=== PATIENT | male | born 1935 | race Caucasian/White ===

== ENCOUNTER 2018-03-30 15:00 | Inpatient (IN) | payer OTHER ==
[~2018-03-30] VITALS: Ht 177.8 cm; Wt 109.8 kg
--- NOTE | ~2018-03-30 | PROC ---
[address] [address] PROCEDURE REPORT Name: TRUNG GRACE Room: [address] IN M.R.#: [id number] Admission: 03/30/18 Attend Phys: Fifi Lam Discharge: 04/01/18 Date of : 37 Report #: [id number] THIS REPORT FOR: //name// For GI report, please see the Provation report in Perceptive 7 content. By: 0703Medical Records Staff VANE /PAULA
[~2018-03-30 15:00] MED LIST: AMARYL2 MG PO; BACTRIM DS TAB1 EACH PO; BYSTOLIC 5 MG5 M1 PO; CARVEDILOL6.25 MG PO; FENOFIBRATE160 MG PO; FLOMAX0.4 MG PO; KLOR-CON 1010 MEQ PO; LASIX 20 MG TAB20 MG PO; LEVOTHYROXIN0.175 MG PO; LIPITOR10 MG PO; LISINOPRIL10 MG PO
[2018-03-30 15:05] VITALS: BP 114/50
[2018-03-30] MEDS ORDERED: INVOKANA300 MG PO (15:32)
[2018-03-30] MEDS ORDERED: FISH OIL 1,001000 M2 PO (15:33)
[2018-03-30] MEDS ORDERED: ASPIR 8181 MG PO (15:33)
[2018-03-30] MEDS ORDERED: VITAMINC500 PO (15:33)
[2018-03-30] MEDS ORDERED: CENTRUM SILVER1 EAC2 PO (15:34)
[2018-03-30] MEDS ORDERED: COLACE100 MG PO (15:34)
[2018-03-30] MEDS ORDERED: TYLENOL325 MG PO (15:34)
[2018-03-30 15:36] LABS: ABSOLUTE EOSINOPHILS 0.1 thou/uL (0.0-0.7); ABSOLUTE LYMPHOCYTES 1.5 thou/uL (0.8-5.3); ABSOLUTE MONOCYTES 0.7 thou/uL (0.0-1.2); ABSOLUTE NEUTROPHILS 3.9 thou/uL (1.6-8.1); BASOPHILS 0.5 %; EOSINOPHILS 2.2 %; HEMATOCRIT 33.4 % (42.0-52.0); HEMOGLOBIN 11.1 gm/dL (14.0-18.0); LYMPHOCYTES 23.2 %; MCH 29.7 pg (26.0-34.0); MCHC 33.2 g/dL (28.0-37.0); MCV 89.4 fL (80.0-100.0); MONOCYTES 11.8 %; MPV 7.7 fl. (7.2-11.1); NUCLEATED RBCS 0 /100WBC; PLATELET COUNT* 225 thou/uL (150-400); POLYS 62.3 %; RBC 3.74 mil/uL (4.50-6.00); RDW-CV 13.4 % (10.5-14.5); WBC 6.3 thou/uL (4.0-11.0)
[2018-03-30 15:45] LABS: APTT 28.2 Seconds (25.0-31.3); CALCIUM 8.3 mg/dL (8.5-10.1); CREATININE 1.2 mg/dL (0.6-1.3)
[2018-03-30 15:49] LABS: ALBUMIN 2.8 g/dL (3.4-5.0); TOTAL BILIRUBIN 0.2 mg/dL (<0.1-1.0); TOTAL PROTEIN 6.4 g/dL (6.4-8.2)
--- NOTE | 2018-03-30 16:24 | NUR ---
NELL NOTIFIED UPON PT RETURN FROM CT. PT CONNECTED TO BP AND PULSE OX MONITOR WAS PRIOR TO CT
[2018-03-30 17:58] VITALS: BP 105/66
[2018-03-30 18:30] VITALS: BP 119/57
[2018-03-30 20:00] VITALS: BP 122/63
[2018-03-30] MEDS ORDERED: HYDROCODONE-AP1 EAC6 PO (22:28)
[2018-03-30] MEDS ORDERED: FENOFIBRATE160 MG PO (22:28)
[2018-03-30] MEDS ORDERED: AMARYL4 MG PO (22:29)
[2018-03-31] VITALS: BP 97/59
--- NOTE | 2018-03-31 01:34 | NUR ---
ASSUMED CARE OF PT AT 1900. PT IS ALERT AND ORIENTED. VSS. PERRLA. PT IS NPO. NO COMPLAINTS OF PAIN. PT IS IN [facility] ON THE TELEMETRY. PT IS RESTING COMFORTABLY IN BED. RESPIRATIONS ARE EVEN AND NONLABORED. WILL CONTINUE TO MONITOR PT.
[2018-03-31 04:00] VITALS: BP 110/50
[2018-03-31 04:30] LABS: ABSOLUTE EOSINOPHILS 0.2 thou/uL (0.0-0.7); ABSOLUTE LYMPHOCYTES 1.5 thou/uL (0.8-5.3); ABSOLUTE MONOCYTES 0.7 thou/uL (0.0-1.2); ABSOLUTE NEUTROPHILS 2.6 thou/uL (1.6-8.1); BASOPHILS 0.6 %; EOSINOPHILS 3.7 %; HEMATOCRIT 31.7 % (42.0-52.0); HEMOGLOBIN 10.6 gm/dL (14.0-18.0); LYMPHOCYTES 29.7 %; MCH 30.2 pg (26.0-34.0); MCHC 33.6 g/dL (28.0-37.0); MONOCYTES 13.6 %; MPV 7.9 fl. (7.2-11.1); NUCLEATED RBCS 0 /100WBC; PLATELET COUNT* 185 thou/uL (150-400); POLYS 52.4 %; RBC 3.52 mil/uL (4.50-6.00); RDW-CV 13.7 % (10.5-14.5)
[2018-03-31 08:00] VITALS: BP 114/61
[2018-03-31 12:18] LABS: HEMATOCRIT 34.2 % (42.0-52.0); HEMOGLOBIN 11.2 gm/dL (14.0-18.0)
[2018-03-31 12:22] VITALS: BP 130/60
--- NOTE | 2018-03-31 12:49 | NUR ---
CM SPOKE TO THE PATIENT TO DISCUSS HOME SITUATION, DISCHARGE PLANNING, AND TO INFORM OF THE ROLE OF CM. PATIENT ALERT AND ORIENTED. PATIENT INDEPENDENT AND ACTIVE, AND INFORMS THAT HE HAD JUST RECENTLY RETURNED FROM A TOUR OF [place]. PATIENT RESIDES AT HOME WITH HIS SPOUSE. PATIENT OWNS A CANE AND INFORMS THAT HE RARELY USES IT. PATIENT USES A CPAP AT [facility] AND BROUGHT IT WITH HIM TO THE HOSPITAL. PATIENT HAS NO HX OF OR SNF. PATIENT PLANS TO RETURN HOME AT D/C AND DOES NOT ANTICIPATE ANY DISCHARGE PLANNING NEEDS. CM WILL REMAIN AVAILABLE TO ASSIST AND FOLLOW NEEDED.
[2018-03-31 12:55] LABS: % SATURATION 17 % (20-39); IRON 31 ug/dL (50-175)
[2018-03-31 13:31] VITALS: BP 114/61
--- NOTE | 2018-03-31 17:10 | EKG ---
[place] [address] ELECTROCARDIOGRAM REPORT Name: TRUNG GRACE Room: [address] ADM IN .R.#: [id number] Admission: 03/30/18 Attend Phys: Fifi Lam Discharge: Date of : 36 Report #: [id number] THIS REPORT FOR: //name// [facility] Test Date: 2018-03-31 Test Time: 12:35:03 Pat Name: TRUNG GRACE Department: Room: [address] Gender: M Salt Refiner: : 1935 Requested By: Maria Elena Howe Order Number: [id number] Reading MD: Abimael Chand Measurements Intervals [place] Rate: 66 P: 41 AL: 187 QRS: 10 QRSD: 107 T: 39 QT: 429 QTc: 450 Interpretive Statements Sinus rhythm Baseline wander in lead(s) V1,V2 Compared to ECG 05/06/2016 17:43:41 No significant changes Electronically Signed On 03-31-2018 17:10:46 CDT by Abimael Chand [email or web address] <ELECTRONICALLY SIGNED> By: Abimael Chand MD, [facility] 03/31/18 1710 1235 1235 Abimael Chand MD, [facility] /EPI
[2018-03-31 20:00] VITALS: BP 119/54
[2018-03-31 20:20] LABS: HEMATOCRIT 34.2 % (42.0-52.0); HEMOGLOBIN 11.4 gm/dL (14.0-18.0)
[2018-04-01 00:39] VITALS: BP 95/44
--- NOTE | 2018-04-01 00:59 | NUR ---
RECEIVED REPORT AND ASSUMED CARE OF PATIENT AT 1930. MANUFACTURING ENGINEER PAINT IN PLACE TRACING SR. ASSESSMENT AND VITALS COMPLETED CHARTED, VSS. PATIENT ON ROOM AIR WITH SATS >92%. PATIENT DENIES PAIN AND DISCOMFORT. PATIENT AMBULATING INDEPENDENTLY TO BATHROOM. ANTICIPATION OF DISCHARGE HOME TOMORROW. PATIENT VOICES NO CONCERNS. GOAL IS TO REST COMFORTABLY. CALL LIGHT WITHIN REACH
[2018-04-01 04:23] VITALS: BP 111/54
[2018-04-01 04:51] LABS: HEMATOCRIT 30.9 % (42.0-52.0); HEMOGLOBIN 10.4 gm/dL (14.0-18.0); MCH 30.1 pg (26.0-34.0); MCHC 33.7 g/dL (28.0-37.0); MCV 89.2 fL (80.0-100.0); RBC 3.46 mil/uL (4.50-6.00); RDW-CV 13.6 % (10.5-14.5); WBC 4.7 thou/uL (4.0-11.0)
--- NOTE | 2018-04-01 05:05 | NUR ---
PATIENT MET GOALS THIS SHIFT: PATIENT RESTED COMFORTABLY WITH NO C/O PAIN OR DISCOMFORT. CALL LIGHT WITHIN REACH
[2018-04-01 05:09] LABS: CALCIUM 7.9 mg/dL (8.5-10.1); CREATININE 1.1 mg/dL (0.6-1.3); POTASSIUM 4.2 mmol/L (3.5-5.1)
[2018-04-01 08:00] VITALS: BP 105/54
[2018-04-01 10:25] VITALS: BP 105/54
[2018-04-01] MEDS ORDERED: CARAFATE 1 GM TA1 GM PO (10:46)
[2018-04-01] MEDS ORDERED: PROTONIX40 M1 PO (10:48)
--- NOTE | 2018-04-01 12:27 | NUR ---
ASSUMED CARE OF PT AT 0730. PT REMAINED A&O X4 CALM AND COOPERATIVE. PT HAD C/O ANKLE PAIN THAT WERE CONTROLLED WITH PRN PO PAIN MEDICATION. PT VSS ON ROOM AIR AND PT UP AD CAROLINE IN HIS ROOM. DISCHARGE INSTRUCTIONS REVIEWED WITH PT AND . PT AND VERBALIZED UNDERSTANDING OF INSTRUCTIONS THAT INCLUDED MEDICATION TEACHING AND FOLLOW UP CARE. IV AND COMMERCIAL REPRESENTATIVE REMOVED PRIOR TO DISCHARGE. ALL PERSONAL BELONGINGS AND ALL PRESCRIPTIONS TAKEN AT TIME OF DISCHARGE. PT TRANSPORTED VIA W/C BY NURSING STAFF TO PRIVATE VEHICLE.
--- NOTE | 2018-04-03 08:22 | CON ---
[facility] [address] [place] [address] CONSULTATION Name: TRUNG GRACE Room: [address] IN .R.#: [id number] Admission: 03/30/18 Attend Phys: Fifi Lam Discharge: 04/01/18 Date of : 37 Report #: [id number] THIS REPORT FOR: //name// CC: Shar Rice DICTATED BY: Maria Elena Howe [facility] DATE OF SERVICE: 03/31/2018 PRIMARY CARE PHYSICIAN: Shar Bonds M.D. Please note at the time of this dictation, the patient was seen and physically examined by myself. REASON FOR CONSULTATION: Melanotic stools. HISTORY OF PRESENT ILLNESS: This is an 82-year-old male who has been having melanotic or black stools for the last 4 days. He went to see his PCP and his PCP sent him to the Emergency Room for further evaluation of this. He states he has had a very large bowel movement for the last several days that have been very black in nature. He did have another one this morning that he states initially it was black in the end of his stool was starting to turn back to his normal color of brown. The patient denies any NSAID use at this time. He only takes Tylenol as needed. He did have a little bit of some epigastric discomfort as well. The patient did have an EGD and colonoscopy 5+ years ago in [place]. He cannot remember exactly where they were done, but he states that he was told everything was normal. The patient did recently travel abroad to [place] and [place] for 5 weeks and returned approximately 10 days ago. He has no other abdominal discomfort noted at this time. He denies any difficulty with swallowing or any nausea or vomiting. ALLERGIES: DEMEROL. MEDICATIONS: From home include Zestril, Invokana, aspirin, fish oil, vitamin C, Centrum, Colace, Tylenol, potassium chloride, Lasix, fenofibrate, hydrocodone, Amaryl, Synthroid, Lipitor, carvedilol and Amaryl. PAST MEDICAL HISTORY: Hypertension, diabetes, history of prostate cancer and hypothyroidism. PAST SURGICAL HISTORY: Triple bypass surgery and right ankle surgery. FAMILY HISTORY: Negative for any GI [place] [address] CONSULTATION Name: TRUNG GRACE Room: [address]#: [id number] Admission: 03/30/18 Attend Phys: Fifi Lam Discharge: 04/01/18 Date of : 36 Report #: [id number] SOCIAL HISTORY: Lives with his . Denies any alcohol, tobacco or illegal drug use at the present time. REVIEW OF SYSTEMS: Twelve-point review of systems is essentially negative except what is mentioned in the HPI. PHYSICAL EXAMINATION: VITAL SIGNS: Temperature 36.8, pulse 68, respirations 18 and blood pressure 116/65. HEART: Regular rate and rhythm. LUNGS: Clear. ABDOMEN: Soft. Positive bowel sounds in all 4 quadrants, which is very slight epigastric tenderness noted to palpation. LABORATORY DATA: Hemoglobin on admission was 11.1 and is 10.6, hematocrit 31.7, white count is 5 and platelets 185. Sodium 137, potassium 4, chloride 103, CO2 of 26, BUN is 34, creatinine 1.2, GFR is 58 and glucose is 146. RADIOLOGICAL DATA: CT of the abdomen and pelvis shows gastric antrum and some wall hyperenhancement. There is mild hyperenhancement and thickening in the duodenal bulb as well. Diverticulosis of the left colon and some chronic pancreatitis changes. IMPRESSION: 1. Melanotic stool. 2. Anemia. 3. Epigastric pain. 4. CT abnormality at the duodenal bulb thickening noted. PLAN: 1. EGD today with Dr. Olson. 2. Continue with his Protonix. 3. Further recommendations to be made once the procedure has been performed. Thank you for allowing us to participate in this patient's care. Please do not hesitate to call with any questions in regard to this consult. ADDENDUM I have personally seen and examined the patient and reviewed labs and imaging. The patient with 4-day history of melanotic stool and epigastric pain who presented to hospital and found to have anemia. He also had a CT of abdomen and pelvis which showed thickening in the level of the duodenal bulb. We will perform our upper endoscopy to further evaluate the abnormal CT and melanotic stool. The patient reports that he also has had change in bowel [place] [address] CONSULTATION Name: TRUNG GRACE Room: [address] IN ..#: [id number] Admission: 03/30/18 Attend Phys: Fifi Lam Discharge: 04/01/18 Date of : 37 Report #: [id number] more constipated. If we do not find anything in the upper GI, we will consider colonoscopy. I will make further recommendation after the EGD is complete. <ELECTRONICALLY SIGNED> By: Raphael Olson MD 04/03/18 0822 1207 1232Raphael Olson MD /nt
--- NOTE | 2018-07-05 12:05 | PATH ---
[address] [place] [address] PATHOLOGY RPT PROCEDURE Name: TRUNG GRACE Room: [address] IN .R.#: [id number] Admission: 03/30/18 Date of : 37 Discharge: 04/01/18 Report #: [id number] Path Case #: [id number] [facility] Accession Number: [id number] . 01 Material submitted: . DUODENAL ULCER BX . 01 Clinical history: . None provided . 02 Diagnosis: Duodenal ulcer biopsy: - Severe active duodenitis with focal fundic gland metaplasia suggesting peptic ulcer disease, negative for granulomas and dysplasia. (DAWN:db; 04/04/2018) LBQ/04/04/2018 . 02 Electronically signed: . Kaleb Goode MD, Pathologist NPI- [id number] . 01 Gross description: . Received in formalin labeled "Grace, Trung, duodenal ulcer," are 6 segments of matute soft tissue measuring 0.9 x 0.8 x 0.2 cm in aggregate dimensions and ranging from 0.2 and 0.5 cm in maximum dimension. The specimen is submitted entirely in cassette A1. (TSD; 03/31/2018) TOB/TOB . 02 Pathologist provided ICD-10: K29.80 . 02 CPT . 897825 Performed at: [address], [place], [place] [id number] MD Ang Hebert MD Phone: [phone] Performed at: [address] [facility] [address] [address], [place], [place] [id number] MD Kaleb Goode MD Phone: [phone]
== END 2018-04-01 12:24 | disposition home or self-care (01) | DRG 378 ==
LOC: M.ERS 15:00 → M.TBA-ER 17:16 → M.2W 17:16
PROVIDERS: Internal Medicine; Nurse Practitioner Adult Health; Nurse Practitioner Family; ADMIT Internal Medicine
PROC: 0DB98ZX Excision of Duodenum, Via Natural or Artificial Opening Endoscopic, Diagnostic (ICD-10-PCS; principal; 2018-03-31)
DX: K26.0 Acute duodenal ulcer with hemorrhage (principal); D62 Acute posthemorrhagic anemia; E44.1 Mild protein-calorie malnutrition; I10 Essential (primary) hypertension; E11.9 Type 2 diabetes mellitus without complications; E03.9 Hypothyroidism, unspecified; I25.10 Atherosclerotic heart disease of native coronary artery without angina pectoris; K44.9 Diaphragmatic hernia without obstruction or gangrene; Z95.1 Presence of aortocoronary bypass graft; Z85.46 Personal history of malignant neoplasm of prostate; Z87.891 Personal history of nicotine dependence; Z79.82 Long term (current) use of aspirin; Z79.899 Other long term (current) drug therapy; Z88.8 Allergy status to other drugs, medicaments and biological substances

== ENCOUNTER 2018-04-11 13:07 | Emergency (ER) | payer OTHER ==
[~2018-04-11] VITALS: Ht 177.8 cm; Wt 113.2 kg
[~2018-04-11 13:07] MED LIST changes: +AMARYL4 MG PO; +ASPIR 8181 MG PO; +CARAFATE 1 GM TA1 GM PO; +CENTRUM SILVER1 EAC2 PO; +COLACE100 MG PO; +FISH OIL 1,001000 M2 PO; +HYDROCODONE-AP1 EAC6 PO; +INVOKANA300 MG PO; +PROTONIX40 M1 PO; +TYLENOL325 MG PO; +VITAMINC500 PO
[2018-04-11 13:57] LABS: ABSOLUTE EOSINOPHILS 0.2 thou/uL (0.0-0.7); ABSOLUTE LYMPHOCYTES 0.8 thou/uL (0.8-5.3); ABSOLUTE MONOCYTES 0.5 thou/uL (0.0-1.2); ABSOLUTE NEUTROPHILS 3.4 thou/uL (1.6-8.1); HEMATOCRIT 33.8 % (42.0-52.0); HEMOGLOBIN 11.1 gm/dL (14.0-18.0); LYMPHOCYTES 16.4 %; MCH 29.4 pg (26.0-34.0); MCHC 32.8 g/dL (28.0-37.0); MCV 89.7 fL (80.0-100.0); MONOCYTES 10.9 %; NUCLEATED RBCS 0 /100WBC; PLATELET COUNT* 190 thou/uL (150-400); POLYS 67.7 %; RBC 3.77 mil/uL (4.50-6.00); RDW-CV 14.2 % (10.5-14.5)
[2018-04-11 13:59] LABS: CALCIUM 8.3 mg/dL (8.5-10.1); CREATININE 1.3 mg/dL (0.6-1.3); POTASSIUM 3.8 mmol/L (3.5-5.1)
[2018-04-11 14:01] LABS: INR 1.1; PROTIME 10.5 Seconds (9.20-11.50)
[2018-04-11 14:04] LABS: ALBUMIN 2.9 g/dL (3.4-5.0); TOTAL BILIRUBIN 0.3 mg/dL (<0.1-1.0); TOTAL PROTEIN 6.6 g/dL (6.4-8.2)
--- NOTE | 2018-04-11 14:12 | EKG ---
[place] [address] ELECTROCARDIOGRAM REPORT Name: TRUNG GRACE Room: [facility]#: [id number] Admission: 04/11/18 Attend Phys: Discharge: Date of : 36 Report #: [id number] THIS REPORT FOR: //name// [facility] ED Test Date: 2018-04-11 Test Time: 13:31:15 Pat Name: TRUNG GRACE Department: Room: Gender: Hospital Director: Sam ROWAN : 1935 Requested By: Jocelyn Montes Order Number: [id number] MD: Flaco Ramirez Measurements Intervals [place] Rate: 68 P: 36 [place]: 196 QRS: 3 QRSD: 105 T: 41 QT: 423 QTc: 450 Interpretive Statements Sinus rhythm Baseline wander in lead(s) V1 Compared to ECG 03/31/2018 12:35:03 No significant changes Electronically Signed On 04-11-2018 14:11:51 CDT by Flaco Ramirez [email or web address] <ELECTRONICALLY SIGNED> By: Flaco Ramirez MD, [facility] 04/11/18 1411 1331 1331 Flaco Ramirez MD, FACC /EPI
[2018-04-11 15:25] VITALS: BP 125/58
== END 2018-04-11 15:26 | disposition home or self-care (01) ==
LOC: M.ERS 13:07
PROVIDERS: Physician Assistant Surgical
DX: M79.604 Pain in right leg (principal); R60.9 Edema, unspecified; I10 Essential (primary) hypertension; E11.21 Type 2 diabetes mellitus with diabetic nephropathy; E03.9 Hypothyroidism, unspecified; I25.10 Atherosclerotic heart disease of native coronary artery without angina pectoris; Z85.46 Personal history of malignant neoplasm of prostate; Z88.8 Allergy status to other drugs, medicaments and biological substances

== ENCOUNTER 2020-08-21 12:42 | Inpatient (IN) | payer MEDICARE ==
[~2020-08-21] VITALS: Ht 175.3 cm; Wt 99.3 kg
[~2020-08-21 12:42] MED LIST changes: -CARVEDILOL6.25 MG PO; +COREG6.25 MG PO
[2020-08-21 12:49] VITALS: BP 117/57
[2020-08-21] MEDS ORDERED: TRADJENTA5 MG (12:52)
[2020-08-21] MEDS ORDERED: FARXIGA10 MG PO (12:53)
[2020-08-21 13:33] LABS: ABSOLUTE EOSINOPHILS 0.2 thou/uL (0.0-0.7); ABSOLUTE LYMPHOCYTES 1.1 thou/uL (0.8-5.3); ABSOLUTE MONOCYTES 0.6 thou/uL (0.0-1.2); ABSOLUTE NEUTROPHILS 5.4 thou/uL (1.6-8.1); BASOPHILS 0.6 %; EOSINOPHILS 2.2 %; HEMATOCRIT 46.3 % (42.0-52.0); HEMOGLOBIN 15.6 gm/dL (14.0-18.0); LYMPHOCYTES 15.1 %; MCH 31.4 pg (26.0-34.0); MCHC 33.6 g/dL (28.0-37.0); MCV 93.3 fL (80.0-100.0); MONOCYTES 8.2 %; MPV 9.1 fl. (7.2-11.1); NUCLEATED RBCS 0 /100WBC; PLATELET COUNT* 116 thou/uL (150-400); POLYS 73.9 %; RBC 4.96 mil/uL (4.50-6.00); RDW-CV 14.2 % (10.5-14.5); WBC 7.4 thou/uL (4.0-11.0)
[2020-08-21 13:40] LABS: CALCIUM 8.8 mg/dL (8.5-10.1); CREATININE 1.4 mg/dL (0.6-1.3); POTASSIUM 4.2 mmol/L (3.5-5.1)
[2020-08-21 13:43] LABS: APTT 27.1 Seconds (25.0-31.3); PROTIME 10.7 Seconds (9.20-11.50)
[2020-08-21 13:50] LABS: ALBUMIN 3.9 g/dL (3.4-5.0); TOTAL BILIRUBIN 0.9 mg/dL (<0.1-1.0); TOTAL PROTEIN 7.8 g/dL (6.4-8.2)
--- NOTE | 2020-08-21 15:54 | EKG ---
[place] [address] ELECTROCARDIOGRAM REPORT Name: TRUNG GRACE Room: [place] [address] ADM IN [facility]#: [id number] Admission: 08/21/20 Attend Phys: Rikki Ponce Discharge: Date of : 37 Date of Service: 08/21/20 1315 Report #: [id number] THIS REPORT FOR: //name// [facility] ED Test Date: 2020-08-21 Test Time: 13:15:29 Pat Name: TRUNG GRACE Department: Room: [facility] Gender: M School Psychologist: OVI : 1935 Requested By: Car Sin Order Number: [id number] MD: Petros Connors Measurements Intervals [place] Rate: 74 P: 69 DC: 210 QRS: 12 QRSD: 99 T: 90 QT: 414 QTc: 460 Interpretive Statements Sinus rhythm Multiform ventricular premature complexes Compared to ECG 04/11/2018 13:31:15 Ventricular premature complex(es) now present Electronically Signed On 08-21-2020 15:54:40 CDT by Petros Connors [email or web address] <ELECTRONICALLY SIGNED> By: Petros Connors MD, FACC 08/21/20 1554 1315 1315 Petros Connors MD, FAC /EPI
--- NOTE | 2020-08-21 15:55 | EKG ---
[place] [address] ELECTROCARDIOGRAM REPORT Name: TRUNG GRACE Room: [place] [address] ADM IN [facility]#: [id number] Admission: 08/21/20 Attend Phys: Rikki Ponce Discharge: Date of : 37 Date of Service: 08/21/20 1316 Report #: [id number] THIS REPORT FOR: //name// [facility] ED Test Date: 2020-08-21 Test Time: 13:16:14 Pat Name: TRUNG GRACE Department: Room: [place] [address] Gender: M Community Service Specialist: OVI : 1935 Requested By: Rikki Ponce Order Number: [id number] MD: Petros Connors Measurements Intervals [place] Rate: 74 P: 30 [place]: 240 QRS: 13 QRSD: 124 T: 108 QT: 425 QTc: 472 Interpretive Statements Sinus rhythm Nonspecific T wave flattening in anterolateral leads and inferior leads Compared to ECG 08/21/2020 13:15:29 Ventricular premature complex(es) no longer present ST (T wave) deviation no longer present Electronically Signed On 08-21-2020 15:55:39 CDT by Petros Connors [email or web address] <ELECTRONICALLY SIGNED> By: Petros Connors MD, FACC 08/21/20 1555 1316 1316 Petros Connors MD, FACC /EPI
[2020-08-21 18:00] VITALS: BP 166/93
[2020-08-21 21:44] VITALS: BP 153/86
[2020-08-21 22:14] VITALS: BP 153/86
[2020-08-21 23:00] VITALS: BP 169/88
--- NOTE | 2020-08-21 23:00 | NUR ---
RECEIVED REPORT FROM ER AND PT TO ROOM AT 2230. AMBULATED WITH STEADY GAIT FROM CART TO BR AND THEN TO BED. PT ALERT AND ORIENTED, REDDING. UNABLE TO ANSWER ALL THE ORIENTATION QUESTIONS. NIH PERFORMED WITH SCORE OF ZERO. NO DRIFT TO SAMMIE ARMS OR LEGS PREVIOUSLY. CONT TO HAVE SL RT FACIAL DROOP. SPEECH CLEAR AND UNDERSTANDABLE. SWALLOWING WITHOUT COUGHING OR CHOKING. BUTTOCK WITH MOISTURE DERMATITIS FROM INCONT OF URINE AND WEARING BRIEFS CONTINOUSLY. TELEMETRY APPLIED SHOWING SR. SEE ADMISSION ASSESSMENT AND HX. WILL CONT TO MONITOR AND ASSIST NEEDED.
[2020-08-22 04:00] VITALS: BP 146/80
[2020-08-22 05:22] LABS: CHOLESTEROL 130 mg/dL (<200); HDL CHOLESTEROL 43 mg/dL (>40); LDL CHOLESTEROL 70 mg/dL (<100); TRIGLYCERIDE 88 mg/dL (<150); VLDL 18 mg/dL (<40)
[2020-08-22 05:30] LABS: SERUM ASSESSMENT CLEAR
--- NOTE | 2020-08-22 07:50 | NUR ---
SLEPT WELL. ATTEMPTED TO USE URINAL BUT UNABLE TO GO. INCONT OF URINE. MOVING SELF IN BED FOR COMFORT. IV NOT FUNCTIONING AND RESTARTED WITHOUT DIFFICULTY. TELEMETRY CONT TO SHOW SR. NO CHANGE IN ASSESSMENT, CONT TO MOVE ASMMIE ARMS AND LEGS WITH PURPOSE. RT FACIAL DROOP NOTED. HOURLY ROUNDING OBSERVED.
[2020-08-22 08:00] VITALS: BP 156/85
--- NOTE | 2020-08-22 13:31 | NUR ---
Nutrition: Pt admitted with stroke, metabolic encephalopathy. Consult for "default." Pt [place], DM. BG 200s, alb 3.9. CHO controlled diet ordered. Wt back in 2018 was 240#, now 217# - mild loss. GOALS: >75% of meals consumed, better BG control. No other nutrition interventions at this time. Mild risk.
[2020-08-22 14:37] VITALS: BP 140/70
--- NOTE | 2020-08-22 14:45 | NUR ---
Pt is A&O. Resides at home with , in room at bedside. Pt is normally independent, uses a walker for mobility. Pt sleeps with a cpap. No hx of HH or SNF. Therapy evals pending. ARU consulted. MRI today, neuro following. CM following for dispo needs.
--- NOTE | 2020-08-22 15:22 | 2DMMODE ---
[place] [address] 2 D/M-MODE ECHOCARDIOGRAM Name: TRUNG GRACE Room: [address] IN .Dani.#: [id number] Admission: 08/21/20 Attend Phys: Rikki Ponce Discharge: Date of : 37 Date of Service: 08/22/20 1522 Report #: [id number] THIS REPORT FOR: cc: Shar Bonds MD, Kevin R. MD Blick, David R. MD [facility] ~ ADDENDUM APPROVED REPORT Study performed: 08/22/2020 13:02:56 EXAM: Comprehensive 2D, Doppler, and color-flow Echocardiogram Patient Location: Bedside BSA: 2.14 HR: 71 bpm BP: 155/85 mmHg Other Information Study Quality: Adequate Indications CVA/TIA Echo Enhancing Agent Indication: Rule out Shunt Agent(s) / Amount(s) Used: Agitated Saline cc 2D Dimensions IVSd: 10.92 (7-11mm) LVOT Diam: 21.32 (18-24mm) LVDd: 47.67 mm PWd: 10.99 (7-11mm) Ascending Ao: 39.73 (22-36mm) LVDs: 41.06 (25-40mm) Aortic Root: 31.04 mm Volumes Left Atrial Volume (Systole) LA ESV Index: 31.50 mL/m2 Aortic Valve AoV Peak William.: 0.89 m/s AO Peak Gr.: 3.17 mmHg LVOT Max P.26 mmHg AO Mean Gr.: 1.86 mmHg LVOT Mean P.32 mmHg LVOT Max V: 0.75 m/s AO V2 VTI: 16.81 cm LVOT Mean V: 0.54 m/[place] [address] 2 D/M-MODE ECHOCARDIOGRAM Name: TRUNG GRACE Room: [address] IN ..#: [id number] Admission: 08/21/20 Attend Phys: Rikki Ponce Discharge: Date of : 37 Date of Service: 08/22/20 1522 Report #: [id number] CEDRIC (VTI): 3.46 cm2 LVOT V1 VTI: 16.32 cm Mitral Valve E/A Ratio: 0.69 MV Decel. Time: 214.29 ms MV E Max William.: 0.50 m/s MV PHT: 62.14 ms MVA (PHT): 3.54 cm2 TDI E/Lateral E': 7.14 E/Medial E': 6.25 Medial E' William.: 0.08 m/s Lateral E' William.: 0.07 m/s Pulmonary Valve PV Peak William.: 0.83 m/s PV Peak Gr.: 2.75 mmHg Tricuspid Valve RAP Estimate: 5.00 mmHg TR Peak Gr.: 29.45 mmHg RVSP: 34.45 mmHg PA Pressure: 34.45 mmHg Left Ventricle The left ventricle is normal size. paradoxical septal motion consistent with previous CABG There is normal left ventricular wall thickness. The left ventricular systolic function is normal. The left ventricular ejection fraction is within the normal range. LVEF is 50-55%. Grade I - abnormal relaxation pattern. Right Ventricle The right ventricle is normal size. The right ventricular systolic function is normal. Atria Left atrium is mildly dilated. Lipomatous hypertrophy of the interatrial septum is noted. Injection of bubbles documented no interatrial shunt. The right atrium size is normal. Aortic Valve The Aortic valve is sclerotic. No aortic regurgitation is present. There is no aortic valvular stenosis. Mitral Valve There is mitral annular calcification. The mitral valve is normal in structure. Mild mitral regurgitation. No evidence [place] [address] 2 D/M-MODE ECHOCARDIOGRAM Name: TRUNG GRACE Room: [address] IN [facility]#: [id number] Admission: 08/21/20 Attend Phys: Rikki Ponce Discharge: Date of : 37 Date of Service: 08/22/20 1522 Report #: [id number] Tricuspid Valve The tricuspid valve is normal in structure. Mild tricuspid regurgitation. Pulmonic Valve The pulmonary valve is normal in structure. Trace pulmonic regurgitation. Great Vessels The aortic root is normal in size. The ascending aorta is borderline dilated. IVC is normal in size and collapses >50% with inspiration. Pericardium There is no pericardial effusion. <Conclusion> LVEF is 50-55%. The Aortic valve is sclerotic. Lipomatous hypertrophy of the interatrial septum is noted. Injection of bubbles documented no interatrial shunt. Left atrium is mildly dilated. <ELECTRONICALLY SIGNED> By: Bradly Carnes MD, FACC 08/22/20 1522 1522 152 Bradly Carnes MD, FACC /INF
--- NOTE | 2020-08-22 17:10 | CON ---
[facility] [address] [place] [address] CONSULTATION Name: TRUNG GRACE Room: [address] IN Fifi.Dani.#: [id number] Admission: 08/21/20 Attend Phys: Maribel Dyer Discharge: Date of : 37 Report #: [id number] THIS REPORT FOR: //name// cc: Shar Bonds MD, Kevin R. MD ~ THIS REPORT FOR: //name// DATE OF SERVICE: 08/22/2020 CARDIOLOGY CONSULTATION HISTORY OF PRESENT ILLNESS: The patient is an 84-year-old white male who I was asked to see in the hospital today after he had a fall. The history is obtained from the patient as well as some old records. The patient is not very active at this time and uses a walker. He has had problems with balance in the past. He had previous triple vessel bypass surgery at [facility] in 2013. His last nuclear stress test 2015 showed no evidence of ischemia with an ejection fraction of 40%. The patient was seen by me in the Cardiology Clinic in June when he was doing well. He denies any recent chest pain. He does get short of breath when he exerts himself, but has had no significant edema, fever or cough. He notes that about a week ago, he was at a repair shop for his car when he fell. He went on home. Yesterday, the patient states he was not feeling well. He has had no energy. He went to see his primary care physician. When he was walking from his car into the doctor's office, he apparently fell. He claims he lost his balance. His put him in the car and he was brought here to [place] and admitted for further evaluation and treatment. He denies any recent fever, cough, palpitations, lower extremity edema. He had no seizure activity with the episode yesterday. He has been somewhat confused lately with some slurred speech. He complains that his legs are weak. He has noticed some dark stools lately. PAST MEDICAL HISTORY: Significant for hip surgery, prostatectomy for cancer, tonsillectomy, sleep apnea and uses BiPAP. He has a history of diabetes, hypertension, hyperlipidemia. MEDICATIONS: Include aspirin, Lipitor, carvedilol, Farxiga, Lasix, glimepiride, Synthroid, Tradjenta, lisinopril. ALLERGIES: HE HAS PREVIOUS INTOLERANCE TO DEMEROL. FAMILY HISTORY: No history of heart disease in the family. SOCIAL HISTORY: He is . He and his live in [place], [place]. He is a retired psychologist. Quit smoking years ago. No alcohol abuse. REVIEW OF SYSTEMS: He has had no history of stroke, asthma, liver disease, [place] [address] CONSULTATION Name: TRUNG GRACE Room: [address] IN [facility]#: [id number] Admission: 08/21/20 Attend Phys: Maribel Dyer Discharge: Date of : 37 Report #: [id number] kidney disease. He has a history of prostate cancer. No psychiatric illness. No chronic skin condition. PHYSICAL EXAMINATION: GENERAL: Elderly, frail-appearing male, lying in bed. He appeared in no distress. VITAL SIGNS: He had a blood pressure of 140/70, pulse 70, he is afebrile. HEENT: He was anicteric. Conjunctivae pink. Mucous membranes moist. NECK: Veins do not appear distended. No carotid bruits. Neck supple. CHEST: Clear to auscultation. CARDIOVASCULAR: Regular rate and rhythm, no murmur. ABDOMEN: Soft. EXTREMITIES: Had no edema. SKIN: Cool and dry. Dorsalis pedis pulse cannot be palpated. NEUROLOGIC: Very slow moving. RADIOLOGICAL DATA: ECG showed a sinus rhythm, nonspecific ST-segment changes. His workup, he had a CT scan of the head without contrast yesterday that showed atrophy, previous left internal capsule infarction, microvascular changes, small vessel disease. He had carotid Doppler study performed that showed no significant stenosis. He had an MRI of the head that showed subacute lacunar infarction, volume loss, small vessel changes. LABORATORY WORK: Sodium 138, BUN 30, creatinine 1.4, glucose 238. Liver function studies were normal. Troponin 0.06. BNP 526. Cholesterol 130, triglyceride 88, HDL 43, LDL 70. TSH 5.6. White blood cell count 7.4, hemoglobin 15.6. IMPRESSION AND RECOMMENDATIONS: 1. Lacunar infarction. The patient is being seen by Neurology. The patient has been taking an aspirin a day. 2. Diabetes. 3. Sleep apnea. The patient uses CPAP. 4. Hypertension. The patient has been on a beta yeison and RAPHAEL inhibitor. 5. Previous coronary artery bypass surgery. No recent angina. I would continue aspirin a day. 6. History of prostate cancer. 7. Chronic kidney disease. <ELECTRONICALLY SIGNED> By: Bradly Carnes MD, FACC 08/22/20 1710 1254 1317Dadominic Carnes MD, FACC /nt
[2020-08-22 18:10] VITALS: BP 140/83
[2020-08-22 21:00] VITALS: BP 149/81
[2020-08-23] VITALS: BP 108/64
[2020-08-23 02:06] LABS: GLYCOHEMOGLOBIN (HGB A1C) 7.7 % (4.8-5.6)
[2020-08-23 04:00] VITALS: BP 104/60
--- NOTE | 2020-08-23 04:42 | NUR ---
PATIENT HAS REMAINED ALERT AND ORIENTED X 3-4 WITH FORGETFULNESS AND SOMEWHAT POOR SAFETY AWARENESS. RESTING QUIETLY AT HOURLY ROUNDS. UP TO BR WITH CGA, GAIT BELT AND WALKER. SOME STRESS INCONT. PATIENT STATES HE WEARS A BREIF AT HOME. CPAP HS. VITAL SIGNS STABLE. NIH 0. FALL PRECAUTIONS IN PLACE. SR AND BIGIMANY ON MONITOR OVERNIGHT. CONTINUE TO MONITOR.
[2020-08-23 08:00] VITALS: BP 135/78
[2020-08-23 14:00] VITALS: BP 88/53
[2020-08-23 16:25] LABS: HEMATOCRIT 45.6 % (42.0-52.0); HEMOGLOBIN 15.1 gm/dL (14.0-18.0); MCH 30.6 pg (26.0-34.0); MCHC 33.2 g/dL (28.0-37.0); MPV 8.4 fl. (7.2-11.1); RBC 4.95 mil/uL (4.50-6.00); RDW-CV 13.9 % (10.5-14.5); WBC 6.1 thou/uL (4.0-11.0)
[2020-08-23 17:01] VITALS: BP 109/60
--- NOTE | 2020-08-23 18:33 | NUR ---
ASSUMED CARE OF PATIENT THIS AM AT 0730. PATIENT IS ALERT AND ORIETED X 4. HE DENIES PAIN AND DISCOMFORT. PATIENT HAS BEEN UP TO THE BR WITH ASSIST OF 1. HE HAS BEEN UP IN THE CHAIR X 2. BED AND CHAIR ALARM IS ON.
[2020-08-23 20:00] VITALS: BP 148/84
[2020-08-24] VITALS: BP 112/69
[2020-08-24 04:30] VITALS: BP 119/61; BP 142/95
[2020-08-24 08:00] VITALS: BP 109/65
[2020-08-24 12:07] VITALS: BP 107/62
--- NOTE | 2020-08-24 12:08 | NUR ---
ASSUMED CARE OF PATIENT THIS AM AT 0730. PATIENT IS ALERT AND ORIENTED X 4. HE DENIES PAIN AND DISCOMFORT. PATIENT HAS BEEN UP TO THE BATHROOM WITH STANDBY ASSIST. CHAIR ALARM AND BED ALARM IS ON. PATIENT IS FORGETTING TO USE WALKER. NO CHANGE IN NIH. TELE SHOWS CONTINUED SINUS RHYTHM.
[2020-08-24 17:22] VITALS: BP 109/55
[2020-08-24 21:00] VITALS: BP 135/78
[2020-08-25] VITALS: BP 94/50
[2020-08-25 04:10] VITALS: BP 116/64
--- NOTE | 2020-08-25 07:03 | NUR ---
PATIENT HAS SLEPT WELL THROUGHOUT MOST OF THE NIGHT. VSS ON RA. NO C/O PAIN. PATIENT UP WITH SBA TO THE BATHROOM, ALTHOUGH PATIENT DOES NOT USE CALL LIGHT AT TIMES. PATIENT EDUCATED ON USING CALL LIGHT FOR ASSISTANCE WHEN NEEDING TO USE THE BATHROOM. NIH-0. IV IN LEFT FOREARM-SL. MEDICATIONS GIVEN ORDERED AND CHARTED. WILL CONTINUE WITH PLAN OF CARE AND NURSING TO MONITOR.
[2020-08-25 08:30] VITALS: BP 133/62
[2020-08-25 12:00] VITALS: BP 105/53
[2020-08-25 13:31] LABS: ABSOLUTE EOSINOPHILS 0.2 thou/uL (0.0-0.7); ABSOLUTE LYMPHOCYTES 1.2 thou/uL (0.8-5.3); ABSOLUTE MONOCYTES 0.4 thou/uL (0.0-1.2); ABSOLUTE NEUTROPHILS 3.5 thou/uL (1.6-8.1); BASOPHILS 0.7 %; HEMATOCRIT 46.1 % (42.0-52.0); HEMOGLOBIN 15.4 gm/dL (14.0-18.0); LYMPHOCYTES 22.9 %; MCH 31.2 pg (26.0-34.0); MCHC 33.4 g/dL (28.0-37.0); MCV 93.5 fL (80.0-100.0); MONOCYTES 7.1 %; MPV 8.2 fl. (7.2-11.1); NUCLEATED RBCS 0 /100WBC; PLATELET COUNT* 130 thou/uL (150-400); POLYS 65.3 %; RBC 4.93 mil/uL (4.50-6.00); RDW-CV 14.1 % (10.5-14.5); WBC 5.3 thou/uL (4.0-11.0)
--- NOTE | 2020-08-25 13:33 | NUR ---
Pt medically stable to dc, Pt wanting ARU, CM updated business support liaison, insurance auth initiated. Updated
[2020-08-25 13:41] LABS: CALCIUM 8.8 mg/dL (8.5-10.1); CREATININE 1.3 mg/dL (0.6-1.3); MAGNESIUM 1.9 mg/dL (1.8-2.4); POTASSIUM 4.4 mmol/L (3.5-5.1)
--- NOTE | 2020-08-25 16:06 | NUR ---
PTs DAUGHTER CALLED TO GET UPDATE ON PT, SHE WAS ASKING IF WE WOULD BE ABLE TO DO CYSTOSCOPY HERE WHILE PT IS IN REHAB. HE WAS SCHEDULED FOR THIS THE DAY THAT HE CAME TO ER AND WAS ADMITTED, DAUGHTER WOULD LIKE SOMEONE TO CALL HER ABOUT THIS.
[2020-08-25 16:32] VITALS: BP 124/59; BP 133/73
--- NOTE | 2020-08-25 18:06 | NUR ---
PT SITTING IN BED AT TIME OF ASSESSMENT. HE IS AO X4 VSS. TELE NSR, PT IS STANDBY ASSIST TO BATHROOM. PT IS REQUESTING REHAB CONSULT FEELING IT WOULD MAKE HIM STRONGER. AT BEDSIDE FOR REASSUREANCE.
[2020-08-25 20:00] VITALS: BP 121/63
[2020-08-26] VITALS (7 sets, daily range): BP systolic 86–115; BP diastolic 50–62
--- NOTE | 2020-08-26 09:42 | NUR ---
RECIEVED REPORT AROUND 0715. ASSUMED CARE. PT DANGLING FEET AT BEDSIDE. IV INTACT. LEFT AC. SALINE LOCK. HEART MONITOR ATTACHED. VS AND ASSESSMENT CHARTED. PT UP IN CHAIR FOR BREAKFAST THIS AM. MEDS GIVEN PER MAR THIS AM. DISCHARGE ORDERS RECIEVED. CALL LIGHT WITHIN REACH. WILL CONTINUE TO MONITOR.
--- NOTE | 2020-08-26 13:09 | NUR ---
Pt discharing to home today with [facility], CM to fax HH orders once available. aware of dispo and will transport
[2020-08-26] MEDS ORDERED: LIPITOR 20 MG T20 M1 PO (13:21)
[2020-08-26] MEDS ORDERED: CLOPIDOGREL75 MG PO (13:21)
--- NOTE | 2020-08-26 14:49 | NUR ---
RECIEVED DISCHARGE ORDERS. GOING HOME WITH HOME HEALTH. IV TAKEN OUT. HEART MONITOR OFF. DISCHARGE PACKET GONE OVER WITH PT AND . COMMUNICATED UNDERSTANDING. PT LEFT UNIT AT 1430 VIA WHEEL CHAIR WITH NURSING STAFF WITH ALL BELONGINGS.
--- NOTE | 2020-08-27 18:51 | CON ---
[address] [address] CONSULTATION Name: TRUNG GRACE Room: [address] IN [place].#: [id number] Admission: 08/21/20 Attend Phys: Maribel Dyer Discharge: 08/26/20 Date of : 37 Report #: [id number] THIS REPORT FOR: //name// cc: Shar Bonds MD, Kevin R. MD ~ THIS REPORT FOR: //name// DATE OF SERVICE: 08/21/2020 HISTORY OF PRESENT ILLNESS: This is an 84-year-old male patient who is a pretty poor historian. I do not believe his memory is very good. History is partly from the . She tells me that this patient's problem is going on at least for several days and may be longer than that. His memory is not good. His speech is not good. He has fallen down. It is not clear why he has fallen down and looks like the weakness was noticed on the right side and that led to the fall. He never hit his head. He does not know what brought these symptoms on and what makes them better or worse. REVIEW OF SYSTEMS: Positive for hypertension, diabetes, triple bypass, right ankle surgery, prostatic carcinoma, hypothyroidism, neuropathy, but he was functional before this episode occurred. He said he does take an aspirin 81 mg and he takes a low dose statin at 10 mg p.o. daily. He denies any new eye, ENT, cardiac, respiratory, GI, , musculoskeletal, constitutional, dermatological, hematological, psychiatric, throat, allergic symptom associated with present symptomatology. PAST MEDICAL HISTORY: Positive for cardiac problems. FAMILY HISTORY: Unremarkable. SOCIAL HISTORY: Apparently, he does not smoke or drink any alcohol. PHYSICAL EXAMINATION: Indicate he is alert. He is responsive. He was able to tell me the month, but could not tell me the exact date. He knew that he was in [place]. He did not name the hospital. He was able to name the president. Speech is hesitant and intermittently he takes a long time to get the words out. In general, his memory and fund of knowledge is poor. Cranial nerve examination 2-12 was carried out. On my examination, it does not appear to be showing any focality although I cannot rule out any right sided facial weakness. As far as motor system examination indicates he is trace weak on the right side as compared to the left side. His position sense is intact on both sides. His reflexes in both lower extremities are diminished. His plantars are mute. His [id number] is reasonably but I cannot look at the fundus. There is no meningeal sign. There is no carotid bruit. He is moderately built individual. His pulses are difficult to feel. His blood pressure is 166/93, respiration is 20, pulse is 80, temperature [place] 98. [place] [address] CONSULTATION Name: TRUNG GRACE Room: [address]#: [id number] Admission: 08/21/20 Attend Phys: Maribel Dyer Discharge: 08/26/20 Date of : 37 Report #: [id number] LABORATORY DATA: Indicated white count of 7.4. His sodium is 138. GFR is somewhat low at 48. His cardiac and respiratory examination is unremarkable. He has no thyroid mass or carotid bruit. His hearing and vision looks adequate. IMPRESSION: Clinically, it is possible this patient has a stroke on the left side. 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 It is not possible to tell the age of the stroke on CAT scan. I discussed the situation with him. I think we should start with an MRI in this patient. He tells me there is no contraindication for MRI. Since clinically, he does appear to have a stroke. He was given aspirin, but we will probably try a combination of aspirin and Plavix. I will go ahead and give him a dose of Plavix because the thinks he is becoming progressively worse. Rest of the workup will depend upon the outcome of MRI and carotid Doppler and we will await that workup. Thank you very much for this referral. <ELECTRONICALLY SIGNED> By: Walter Mckeon MD 08/27/20 185 03 Walter Mckeon MD /nt
== END 2020-08-26 14:30 | disposition home health service (06) | DRG 64 ==
LOC: M.ERS 12:42 → M.TBA-ER 14:00 → M.2W 14:00
PROVIDERS: Emergency Medicine Emergency Medical Services; Internal Medicine; Psychiatry & Neurology Neuromuscular Medicine; ADMIT Internal Medicine; ATTEND Internal Medicine
PROC: 5A09357 Assistance with Respiratory Ventilation, Less than 24 Consecutive Hours, Continuous Positive Airway Pressure (ICD-10-PCS; principal; 2020-08-23)
DX: I63.81 Other cerebral infarction due to occlusion or stenosis of small artery (principal); G93.41 Metabolic encephalopathy; G81.91 Hemiplegia, unspecified affecting right dominant side; I25.10 Atherosclerotic heart disease of native coronary artery without angina pectoris; E03.9 Hypothyroidism, unspecified; I12.9 Hypertensive chronic kidney disease with stage 1 through stage 4 chronic kidney disease, or unspecified chronic kidney disease; N18.9 Chronic kidney disease, unspecified; E11.22 Type 2 diabetes mellitus with diabetic chronic kidney disease; G47.30 Sleep apnea, unspecified; R31.9 Hematuria, unspecified; E11.40 Type 2 diabetes mellitus with diabetic neuropathy, unspecified; Z20.828 Contact with and (suspected) exposure to other viral communicable diseases; Z85.46 Personal history of malignant neoplasm of prostate; Z95.1 Presence of aortocoronary bypass graft; Z79.84 Long term (current) use of oral hypoglycemic drugs; Z79.82 Long term (current) use of aspirin; Z79.899 Other long term (current) drug therapy; Z88.8 Allergy status to other drugs, medicaments and biological substances; Z87.891 Personal history of nicotine dependence